=== PATIENT | female | born 1950 | race Caucasian/White ===

== ENCOUNTER 2022-09-12 06:59 | Outpatient (CLI) | payer MEDICARE, BC ==
[~2022-09-12 06:59] MED LIST: APIX5TAB3 PO; CHOL400T57 PO; FLUT1BLS16 INH; FURO40TA4 PO; HYDR-3686 PO; LOSA100T57 PO; MONT10TA21 PO; PRED10TA PO; ROSU20TA2 PO
[2022-09-12] MEDS ORDERED: albuterol 2.5 MG/3 ML nebule NEB PRN (08:05)
== END 2022-09-12 23:59 | disposition home or self-care (01) ==
LOC: RT 06:59
PROVIDERS: ATTEND Internal Medicine Critical Care Medicine
DX: R94.2 Abnormal results of pulmonary function studies (principal); R06.02 Shortness of breath; Z79.899 Other long term (current) drug therapy
CPT/HCPCS: 94060; 94727; 94729; 94760

== ENCOUNTER 2023-05-01 09:01 | Outpatient (CLI) | payer MEDICARE, BC ==
[~2023-05-01 09:01] MED LIST changes: -FURO40TA4 PO; -LOSA100T57 PO; +LOSA100T58 PO; +MONT-47 PO; -MONT10TA21 PO
[2023-05-01] MEDS ORDERED: iohexol 300mg/ml 100ml inj. ONE (09:17)
== END 2023-05-01 23:59 | disposition home or self-care (01) ==
LOC: RAD 09:01
PROVIDERS: ATTEND Family Medicine
DX: J47.9 Bronchiectasis, uncomplicated (principal); R59.0 Localized enlarged lymph nodes; J84.10 Pulmonary fibrosis, unspecified; J96.11 Chronic respiratory failure with hypoxia; R94.2 Abnormal results of pulmonary function studies; I25.10 Atherosclerotic heart disease of native coronary artery without angina pectoris; M47.814 Spondylosis without myelopathy or radiculopathy, thoracic region
CPT/HCPCS: 71250; 94010; 94727; 94729; J3490; Q9967

== ENCOUNTER 2024-06-23 08:09 | Outpatient (CLI) | payer MEDICARE, BC ==
[2024-06-23] VITALS (12 sets, daily range): BP systolic 78–133; BP diastolic 41–79; PULSE 112–125; RESP 22–60; O2SAT 78–96
[~2024-06-23] VITALS: Ht 167.6 cm; Wt 71.2 kg
[~2024-06-23 08:09] MED LIST changes: +ALBU10.7 INH; -APIX5TAB3 PO; +FURO-149 PO; +LORA-268 PO; +PIRF267C2 PO; -PRED10TA PO; +PRED10TA23 PO; +RIVA10TA PO
[2024-06-23] MEDS ORDERED: aminophylline inj. 0 ML IV ONE (10:27)
[2024-06-23] MEDS: regadenoson 0.4mg/5ml syringe IV ONE (10:34)
[2024-06-23] MEDS: LORazepam 2 mg/ml vial IV ONE (11:19)
== END 2024-06-23 23:59 | disposition home or self-care (01) ==
LOC: RAD 08:09
PROVIDERS: ATTEND Internal Medicine Interventional Cardiology
DX: R94.31 Abnormal electrocardiogram [ECG] [EKG] (principal)
CPT/HCPCS: 78452; 93017; A9500; J2060; J2785; J0280